=== PATIENT | male | born 1970 | race Caucasian/White ===

== ENCOUNTER 2017-05-22 22:19 | Observation (INO) ==
[2017-05-22 23:21] LABS: Basophils # 0.1 K/mcL (0.0-0.2); Basophils % 0.5 %; Eosinophils # 0.2 K/mcL (0.0-0.6); Eosinophils % 2.2 %; Hematocrit 43.5 % (37.5-50.1); Hemoglobin 15.2 g/dL (12.9-16.9); Immature Granulocytes % 0.9 % (0-4); Lymphocytes % 30.1 %; Mean Corpuscular HGB Conc 34.9 g/dL (31.6-35.5); Mean Corpuscular Hemoglobin 29.1 pg (28.0-33.3); Mean Corpuscular Volume 83.2 fL (83.0-100.0); Mean Platelet Volume 10.4 fL (9.4-12.4); Neutrophils # 5.7 K/mcL (1.6-8.9); Platelet Count 174 K/mcL (140-400); Red Blood Count 5.23 M/mcL (4.19-5.50); Red Cell Distribution Width 12.6 % (11.5-14.5); Segmented Neutrophils % 56.3 %
[2017-05-22 23:34] LABS: BUN/Creatinine Ratio 25 (6-26); Blood Urea Nitrogen 37 mg/dL (8-26); Calcium 9.8 mg/dL (8.6-10.8); Carbon Dioxide 25 mEq/L (19-29); Chloride 103 mEq/L (98-109); Glucose 179 mg/dL (70-99); Osmolality,Calculated 293 (280-300); Potassium 4.7 mEq/L (3.5-4.5); Sodium 135 mEq/L (136-145); eGFR For African Americans > 60 (> 60); eGFR For Non-African Americans 51 (> 60)
[2017-05-22] MEDS ORDERED: 0.9 % Sodium Chloride 1,000 ML IVC ONE (23:49)
[2017-05-23] MEDS ORDERED: Nitroglycerin 1 INCH/GM PACKET TP ONE (00:10)
--- NOTE | 2017-05-23 01:05 | Emergency Department Note ---
Disposition Clinical Impression: Chest pain Qualifiers: Chest pain type: unspecified Qualified Code(s): R07.9 - Chest pain, unspecified Disposition: Admitted As Inpatient Chest Pain HPI - General Chief Complaint: ED Chest Pain Stated Complaint: CP Time Seen by Provider: 05/22/17 22:48 Source: patient Limitations: no limitations Vital Signs Reviewed: Yes Nursing Notes Reviewed: Yes - History of Present Illness HPI Narrative: 46-year-old male with history of hypertension, hyperlipidemia presenting today with chest pain with an onset at 10 AM this morning. Chest pain is nonspecific and pressure-like. He has no recent cardiac catheterization or stress testing. He has had no fever or chills. He has pain or leg tenderness. He has no hemoptysis. He does not follow the floor space allocator but admits to family history of stroke. Severity scale (1-10): 2 - Related Data Home Medications Medication Instructions Recorded Confirmed Atorvastatin [Lipitor] 40 mg PO HS 05/23/17 05/23/17 Cetirizine HCl [All Day Allergy] 10 mg PO DAILY 05/23/17 05/23/17 Colchicine [Colcrys] 0.6 mg PO DAILY PRN 05/23/17 05/23/17 Escitalopram [Lexapro] 10 mg PO DAILY 05/23/17 05/23/17 Fluticasone Propionate Nasal 1 spray NS DAILY PRN 05/23/17 05/23/17 [Flonase] Metoprolol [Lopressor] 37.5 mg PO DAILY 05/23/17 05/23/17 [place]-3/Dha/Epa/Fish Oil [Fish Oil 1,000 mg PO DAILY 05/23/17 05/23/17 1,000 mg Softgel] Omeprazole [PriLOSEC] 40 mg PO DAILY 05/23/17 05/23/17 Tramadol HCl [Ultram] 50 mg PO TID PRN 05/23/17 05/23/17 diazePAM [Valium] 10 mg PO HS 05/23/17 05/23/17 hydroCHLOROthiazide 12.5 mg PO DAILY 05/23/17 05/23/17 [Hydrochlorothiazide] Allergies Allergy/AdvReac Type Severity Reaction Status Date / Time aspirin [ASA] AdvReac Rash Verified 07/01/15 11:38 Cefaclor [From Ceclor] AdvReac Rash Verified 07/01/15 11:38 All systems ED: reviewed and negative except as stated. Chest Pain PMH - Past Medical History Medical history: Reports: GERD, hypertension Psychiatric history: Reports: anxiety - Social History Smoking Status: Never smoker Alcohol use: Reports: occasionally Drug use: Reports: none Physical Exam - General Limitations: no limitations General appearance: alert - Head Head exam: atraumatic - Eye Eye exam: Present: normal appearance - ENT ENT exam: normal exam - Neck Neck exam: Present: normal inspection, full ROM - Chest Chest inspection: Present: normal inspection - Respiratory Respiratory exam: Present: normal lung sounds bilaterally - Cardiovascular Cardiovascular exam: Present: regular rate, normal rhythm - Abdominal Exam Abdominal exam: Present: soft, Non-Tender - Extremities Exam Extremities exam: Present: normal inspection, full ROM - Expanded Lower Extremity Exam Neurovascular/Tendon exam: Present: normal capillary refill. Absent: pulse deficit Gait: observed and normal - Back Exam Back exam: Present: normal inspection, full ROM - Neurological Exam Neurological exam: Present: alert, oriented X3, CN II-XII intact - Psychiatric Psychiatric exam: Present: normal affect, normal mood - Skin Skin exam: Present: warm, dry Course Vital Signs Temperature 98.2 F 05/22/17 22:35 Pulse Rate 101 05/22/17 22:35 Respiratory Rate 16 05/22/17 22:35 Blood Pressure 151/91 05/22/17 22:35 O2 Sat by Pulse Oximetry 94 05/22/17 22:35 Temperature 97.6 F 05/24/17 04:35 Pulse Rate 57 05/24/17 04:35 Respiratory Rate 16 05/24/17 04:35 Blood Pressure 128/82 05/24/17 04:35 O2 Sat by Pulse Oximetry 96 05/24/17 04:35 Oxygen Delivery Oxygen Delivery Room Air Chest Pain - MDM Narrative Medical decision making narrative: 46-year-old male with a history of chest pain who is having typical pain symptoms. Aspirin was given. Nitroglycerin did improve his pain. His EKG shows sinus tachycardia with underlying sinus arrhythmia with normal intervals, poor R-wave progression. Nonspecific abnormal ECG. Heart score is 3. Would plan to admit for further evaluation and possible cardiac consultation. - Lab Data Result diagrams: 05/24/17 02:44 05/24/17 02:44 Lab Results 05/22/17 05/22/17 05/22/17 Range/Units 22:59 22:59 22:59 WBC 10.1 (4.3-11.1) K/mcL RBC 5.23 (4.19-5.50) M/mcL Hgb 15.2 (12.9-16.9) g/dL Hct 43.5 (37.5-50.1) % MCV 83.2 (83.0-100.0) fL MCH 29.1 (28.0-33.3) pg MCHC 34.9 (31.6-35.5) g/dL RDW 12.6 (11.5-14.5) % Plt Count 174 (140-400) K/mcL MPV 10.4 (9.4-12.4) fL Immature Gran % 0.9 (0-4) % Seg Neutrophils % 56.3 % Lymphocytes % 30.1 % Monocytes % 10.0 % Eosinophils % 2.2 % Basophils % 0.5 % Neutrophils # 5.7 (1.6-8.9) K/mcL Lymphocytes # 3.0 (0.6-4.6) K/mcL Monocytes # 1.0 (0.0-1.3) K/mcL Eosinophils # 0.2 (0.0-0.6) K/mcL Basophils # 0.1 (0.0-0.2) K/mcL Sodium 135 L (136-145) mEq/L Potassium 4.7 H (3.5-4.5) mEq/L Chloride 103 (98-109) mEq/L Carbon Dioxide 25 (19-29) mEq/L BUN 37 H (8-26) mg/dL Creatinine 1.49 H (0.72-1.25) mg/dL Est GFR ( Amer) > 60 (> 60) Est GFR (Non-Af Amer) 51 L (> 60) BUN/Creatinine Ratio 25 (6-26) Glucose 179 H (70-99) mg/dL Calculated Osmolality 293 (280-300) Calcium 9.8 (8.6-10.8) mg/dL Troponin I 0.00 (0-0.03) ng/mL Critical Care Time Total Critical Care Time: 35 Attestation: Greater than 35 minutes of critical care time was spent resuscitating this acutely ill male having chest pain requiring nitroglycerin administration. Critical care time was excluding billable procedures.
[2017-05-23] MEDS ORDERED: Naloxone 0.4 MG/ML INJ IVP PRN (02:59)
--- NOTE | 2017-05-23 03:06 | Internal Med History&Physical ---
<Jose Antonio Rosa - Last Filed: 05/23/17 03:27> Date of Encounter: 05/23/17 Time of Encounter: 03:04 Assessment and Plan (1) Chest pain Current visit: Yes Status: Acute atypical chest pain substernal, relieved by nitroglycerin EKG shows sinus tachycardia w/o st-t wave changes trop WNL last exercise stress test in 2005 was WNL heart score 3 ASCVD 10 year: 4.6% Lifetime risk 69% plan: lipid panel, tsh, urine tox, exercise stress test cardiac tele continue home statin allergic to aspirin hold home bb and restart after stress test Qualifiers: Chest pain type: unspecified Qualified Code(s): R07.9 - Chest pain, unspecified (2) Arrhythmia Current visit: Yes Status: Acute patient stated his chest pressure was accompanied by feeling of palpitations, heart skipping beats/racing in setting of dehydration and arnaldo EKG shows sinus tachycardia currently etiology unknown Plan: cardiac tele urine tox exercise stress test Qualifiers: Arrhythmia type: paroxysmal tachycardia, unspecified Qualified Code(s): I47.9 - Paroxysmal tachycardia, unspecified; I47 - Paroxysmal tachycardia (3) ARNALDO (acute kidney injury) Current visit: Yes Status: Acute Base line Scr .8-.9 presented with Scr 1.49 >0.3 increase tachycardic BUN/scr>20 likley pre-renal in setting of new onset arrhythmia and chest pain Plan: IVF- recieved 2L in ER if renal function does not improve may obtain further work up. BMP (4) Hx of essential hypertension Current visit: Yes Status: Acute stable continue home medication (5) Hx of hyperlipidemia Current visit: Yes Status: Acute hx of HLD continue home statin order fasting lipid panel (6) DVT prophylaxis Current visit: Yes Status: Acute heparin SQ Internal Medicine - H&P: HPI Chief complaint: Chest pain Admitted From: Home Plans for Post Hospital Care: Home History of present illness: Mr. Gonzales is a 46 year old male presents with chief complaint of chest pain that started yesterday at 4:00 in the afternoon. Pain was described as substernal, intermittent lasting 20 minutes with no exacerbating or relieving factors. Denied nausea, vomiting, diaphoresis, blurry vision, shortness of breath. Patient reported multiple episodes of palpitations. He denied ever having this before. Denies passing out. Patient received nitroglycerin in the ER which resolved his chest pressure. Past Med Surg Social Fam HX - Past Medical History Medical history: GERD, hyperlipidemia, hypertension Psychiatric history: anxiety, depression - Past Surgical History Surgical History: no surgical history, non-contributory - Social History Smoking Status: Former smoker Smokeless Tobacco Status: No Alcohol use: occasionally Drug use: none - Family History Father History Unknown: Yes Adopted: [place]: Earnest Age: 62 Cause of : colon cancer Hx Family Cardiac Disorders: No Hx Family Respiratory Disorders: No Hx Family Cancer: Yes (Colon cancer) Hx Family GI Disorders: Yes Hx Family Genitourinary Disorders: No Hx Family Endocrine Disorder: No Hx Family Musculoskeletal Disorders: No Hx Family Neuromuscular Disorders: No Hx Family Neurologic Disorders: No Hx Family HEENT Disorders: No Hx Family Autoimmune Disorders: No Hx Family Reproductive Disorders: No Hx Family Psychosocial Disorders: Yes Mother Living Status: Still Living Hx Family Cardiac Disorders: Yes (Hypertension) Internal Medicine - H&P: Meds Allergies aspirin [ASA] Adverse Reaction (Verified 07/01/15 11:38) Rash Cefaclor [From Ceclor] Adverse Reaction (Verified 07/01/15 11:38) Rash All Systems PM: A 10-system review of systems was performed and is negative for pertinent findings except as documented above in the HPI. Review of systems: Constitutional: Denies fever, chills HEENT: Denies headache, vision changes, neck pain, sore throat, rhinorrhea Heart: Reports chest pressure and palpitations Lungs: Denies shortness of breath cough Abdomen: Denies abdominal pain nausea vomiting diarrhea Back: Denies back pain Kidney: Denies dysuria, hematuria Extremities: Denies swelling, pain Neuro: Denies numbness, and tingling - Constitutional Vitals: Temp Pulse Resp BP Pulse Ox 98.2 F 82 14 129/99 96 05/22/17 22:35 05/23/17 00:18 05/23/17 01:31 05/23/17 01:31 05/23/17 00:18 - Other Additional findings: General: Alert and oriented to place time and situation. Without distress HEENT: Head atraumatic, normocephalic, EOMI, PERRLA, neck nontender to palpation , absent Lymphadenopathy, Moist Mucous Membranes, Heart: Regular rate and rhythm with no murmur Lungs: Clear to auscultation bilaterally Abdomen: Soft nontender, nondistended positive bowel sounds Extremities: Absent pedal edema, Neuro: Cranial nerves II through XII intact, sensation equal bilaterally, strength upper and lower extremity 5/5, alert oriented 3 Vascular: Pedal and radial pulses 2 out of 4 Internal Med - H&P Results - Labs CBC & Chem 7: 05/22/17 22:59 05/22/17 22:59 <Jc Leiva - Last Filed: 05/23/17 06:24> Date of Encounter: 05/23/17 Internal Medicine - H&P: HPI History of present illness: Mr. Gonzales is a 46 year old male All Systems PM: A 10-system review of systems was performed and is negative for pertinent findings except as documented above in the HPI. - Constitutional Vitals: Temp Pulse Resp BP Pulse Ox 98.2 F 65 16 108/71 95 05/22/17 22:35 05/23/17 05:08 05/23/17 05:08 05/23/17 05:08 05/23/17 05:08 Internal Med - H&P Results - Labs CBC & Chem 7: 05/22/17 22:59 05/23/17 03:46 Labs: BMP 05/23/17 03:46 Sodium 141 Potassium 3.9 Chloride 105 Carbon Dioxide 26 BUN 20 D Creatinine 0.94 Glucose 92 Calcium 9.3 - Attending Attestation I examined this patient and my medical decision-making was reviewed with the Resident Physician, Dr. Rosa. I agree with the documented findings, disposition and treatment plan as described except to the extent set forth below. I have independently obtained history and examined the patient and my findings are summarized below: Patient presented for evaluation of chest pain and palpitations. Currently the chest pain has resolved after administration of nitroglycerin. On exam he is awake alert oriented 3, heart is regular, lungs are clear. Cardiac troponin is negative EKG was personally reviewed by myself, shows normal sinus rhythm no acute ST or T-wave changes Plan: Transient troponin, rule out ACS. Obtain stress test.
[2017-05-23 05:35] LABS: BUN/Creatinine Ratio 21 (6-26); Calcium 9.3 mg/dL (8.6-10.8); Carbon Dioxide 26 mEq/L (19-29); Chloride 105 mEq/L (98-109); Glucose 92 mg/dL (70-99); Osmolality,Calculated 294 (280-300); Potassium 3.9 mEq/L (3.5-4.5); Sodium 141 mEq/L (136-145); eGFR For African Americans > 60 (> 60); eGFR For Non-African Americans > 60 (> 60)
[2017-05-23 05:36] LABS: Blood Urea Nitrogen 20 mg/dL (8-26)
[2017-05-23 05:37] LABS: Chol/HDL Ratio 3.5 (0-4.9); Magnesium 1.7 mg/dL (1.6-2.6)
[2017-05-23 05:49] LABS: Hemoglobin A1C 5.1 %
[2017-05-23] MEDS: *HR* Heparin 5,000 UNIT/ML VIAL SQ SCH ×2 (06:21→18:30)
[2017-05-23] MEDS: 0.9 % Sodium Chloride 1,000 ML IVC SCH ×2 (06:25→18:36)
[2017-05-23] MEDS: hydroCHLOROthiazide 25 MG TABLET PO SCH (07:19)
--- NOTE | 2017-05-23 09:24 | Internal Med Progress Note ---
<Edgar Soares - Last Filed: 05/23/17 15:12> Date of Encounter: 05/23/17 Time of Encounter: 09:24 - Assessment and plan (1) Chest pain Current Visit: Yes Status: Acute Assessment and plan: Pressure chest pain started on 05/21 that lasts for 20 minutes at a time. Nitro resolved pain in ED. allergic to ASA. EKG - sinus achy. CESIA 2 (>3 CAD risk factors (FMHx CAD, HTN, HLD) 8% risk at 14 days of all cause. ASCVD Risk 10 year: 2.2%. Prevously diagnosed Anxiety, well managed on nightl diazepam. - if O2 <92%, give O2 - Nitro if CP reoccurs - Atorvastatin increased 20 mg to 40 mg. 40 mg is home dose - Beta tere hold for stress test - continue heparin - Stress Test pending - continue tele - started home diazepam Qualifiers: Chest pain type: unspecified Qualified Code(s): R07.9 - Chest pain, unspecified (2) Arrhythmia Current Visit: Yes Status: Acute Assessment and plan: Feelings of palpitations during chest pain has since resolved. continue tele Qualifiers: Arrhythmia type: paroxysmal tachycardia, unspecified Qualified Code(s): I47.9 - Paroxysmal tachycardia, unspecified; I47 - Paroxysmal tachycardia (3) Hx of essential hypertension Current Visit: Yes Status: Acute Assessment and plan: home beta tere held, will restart after stress (4) Hx of hyperlipidemia Current Visit: Yes Status: Acute Assessment and plan: restarted home Atorvastatin 40 mg (5) ARNALDO (acute kidney injury) Current Visit: Yes Status: Acute Assessment and plan: Upon admission Cr. 1.49, baseline for patient is 0.8-0.9. Today Cr. 0.94. Will continue to monitor Cr (6) DVT prophylaxis Current Visit: Yes Status: Acute Assessment and plan: ct heparin - Subjective Interval history: Mr Gonzales is a 46 year old male on day 1 of admission due to chest pain that started at 4pm yesterday afternoon. Pain is described as "weight on his chest" and located post-sternally. Pain waxed and waned until he got home which he tried to resolve by drinking a couple of beers and taking a valium. He also noticed that his heart and pulse were "fluttering". he reports that his symptoms have since resolved after receiving nitro paste. patient denies current nausea, vomiting, sweating, blurry vision, SOB, anxiety. Patient does have a history of anxiety that is controlled with a nightly Valium. - Constitutional Vitals: Temp Pulse Resp BP Pulse Ox 97.5 F L 63 16 125/84 97 05/23/17 07:13 05/23/17 07:13 05/23/17 07:13 05/23/17 07:13 05/23/17 07:13 General appearance: Present: cooperative, A&O X 3 - Head Head exam: Present: atraumatic, normocephalic - Respiratory Respiratory exam: Present: CTAB. Absent: accessory muscle use, rales, rhonchi, wheezes - Cardiovascular Cardiovascular exam: Present: RRR, +S1, +S2. Absent: diastolic murmur, gallop, rubs, systolic murmur - GI/Abdominal GI/Abdominal exam: Present: normal bowel sounds, soft, no peritoneal signs. Absent: distended, tenderness - Neurological Exam Neurological exam: Present: alert, oriented X3 - Psychiatric Psychiatric exam: Present: normal affect, normal mood Internal Medicine: Result - Labs CBC & Chem 7: 05/22/17 22:59 05/23/17 03:46 Labs: BMP 05/23/17 03:46 Sodium 141 Potassium 3.9 Chloride 105 Carbon Dioxide 26 BUN 20 D Creatinine 0.94 Glucose 92 Calcium 9.3 Consult Discharge Plan - Plan Referrals: Av Mariee MD [Primary Care Provider] - 05/29/17 1:00 pm (appointment will be [facility]) <Pardeep Mueller - Last Filed: 05/23/17 16:53> Date of Encounter: 05/23/17 - Constitutional Vitals: Temp Pulse Resp BP Pulse Ox 97.6 F 91 20 151/90 97 05/23/17 15:59 05/23/17 15:59 05/23/17 15:59 05/23/17 15:59 05/23/17 15:59 Internal Medicine: Result - Labs CBC & Chem 7: 05/22/17 22:59 05/23/17 03:46 Labs: BMP 05/23/17 03:46 Sodium 141 Potassium 3.9 Chloride 105 Carbon Dioxide 26 BUN 20 D Creatinine 0.94 Glucose 92 Calcium 9.3 - Attending Attestation I examined this patient and my medical decision-making was reviewed with the Resident Physician on 05/23/17. I agree with the documented findings, disposition and treatment plan as described except to the extent set forth below. Patient is seen and evaluated at bedside He is admitted to observation and being managed for acute onset sinus arrhythmia , chest pain and ARNALDO He has not had chest pain or palpitations since arrival and is chest pain free His EKG was sinus and non-ischemic, troponin negative Denies toxic habts Exam: VSS Chest is clear, chest pain not reproducible Heart: S1, S2 only, no m/g/r Abdomen is benign No pedal edema A/P Follow stress/echo report Keep on telemetry Obtain urine toxicology Continue current care Rest of details as in resident physicians documentation
[2017-05-23] MEDS ORDERED: Perflutren Lipid Microsphere 1.3 ML in 0.9 % Sodium Chloride 8.7 ML IVP ONE (12:58)
--- NOTE | 2017-05-23 14:44 | Exercise Stress Test ---
Exercise Stress Name: John Gonzales Date of Study: 05/23/2017 Date: 1970 Ht: 70.0in Medical Record#: [id number] Age: 46 Wt: 262.0lb Gender: Male BSA: 2.34 Order #: [id number] Location: [facility] Room #: 2A34 Reading Physician: London Persaud MD, [facility] Technologist: Tasia Dasilva, [employer]IED COMM[employer]ICATION[employer] ENGINEER,CPFT Supervising Provider: García Alcantara CNP Primary Physician: Av Mariee MD Ordering Physician: Jose Antonio Rosa DO Indication: Chest Pain Impressions: The exercise capacity was average. Baseline elevated blood pressure (146/90). Peak BP with exercise was 204/110. Stress ECG was borderline for ischemia in the inferolateral leads. Recommend repeating a stress test with an imaging modality (such as echocardiography or nuclear perfusion imaging) to further evaluate. Findings: Normal sinus rhythm No baseline arrhythmias were noted. The exercise capacity was average. Baseline elevated blood pressure (146/90). Peak BP with exercise was 204/110. No chest pain during exercise. Rare PACs during exercise and recovery. 1 PVC also noted. Stress ECG was borderline for ischemia in the inferolateral leads. Recommend repeating a stress test with an imaging modality (such as echocardiography or nuclear perfusion imaging) to further evaluate. History: Hypertension Hypercholesteremia Stress Test Summary: Stress Test Type: Treadmill Protocol: Tony Baseline Information: Maximum Predicted HR: 173 85% MPHR: 147 Blood Pressure: 146 / 90 Stress Information: Total Exercise Time: 8:00 minutes Test Terminated Due To: Dyspnea Maximum Blood Pressure: 204 / 110 Maximum Heart Rate: 165 Percent Maximum Heart Rate Achieved: 95 Double Product: [id number] METS Reached: 10.1 Symptoms: Shortness of breath, Leg discomfort Updated by London Persaud MD, [facility] on 05/23/2017 2:36:56 PM electronically signed on 05/23/2017 2:37:36 PM with status of Final
--- NOTE | 2017-05-23 15:37 | Electrocardiograph Report ---
[address] [address] Test Date: 2017-05-22 Pat Name: John Gonzales Department: 105 Room: 2A Gender: M [employer] Supervisor: [facility] : 1970 Requested By: Willian Hernandez Order Number: [id number] Reading MD: Abner Hernandez Measurements Intervals [place] Rate: 101 P: 45 DC: 157 QRS: 21 QRSD: 99 T: 32 QT: 328 QTc: 386 Interpretive Statements SINUS TACHYCARDIA ABNORMAL RHYTHM ECG Electronically Signed On 05-23-2017 15:35:17 EDT by Abner Hernandez
[2017-05-23] MEDS: traMADol 50 MG TABLET PO PRN (20:09)
[2017-05-23] MEDS: diazePAM 10 MG TABLET PO PRN (20:10)
[2017-05-24 04:33] LABS: Hematocrit 40.1 % (37.5-50.1); Mean Corpuscular HGB Conc 32.9 g/dL (31.6-35.5); Mean Corpuscular Hemoglobin 28.1 pg (28.0-33.3); Mean Corpuscular Volume 85.3 fL (83.0-100.0); Mean Platelet Volume 10.9 fL (9.4-12.4); Platelet Count 150 K/mcL (140-400); Red Cell Distribution Width 12.6 % (11.5-14.5)
[2017-05-24 04:36] LABS: Hemoglobin 13.2 g/dL (12.9-16.9)
[2017-05-24] MEDS: 0.9 % Sodium Chloride 1,000 ML IVC SCH ×2 (04:44→15:11)
[2017-05-24 04:53] LABS: BUN/Creatinine Ratio 15 (6-26); Blood Urea Nitrogen 13 mg/dL (8-26); Carbon Dioxide 26 mEq/L (19-29); Chloride 106 mEq/L (98-109); Glucose 98 mg/dL (70-99); Osmolality,Calculated 294 (280-300); Potassium 3.6 mEq/L (3.5-4.5); Sodium 142 mEq/L (136-145); eGFR For African Americans > 60 (> 60); eGFR For Non-African Americans > 60 (> 60)
[2017-05-24] MEDS: *HR* Heparin 5,000 UNIT/ML VIAL SQ SCH ×2 (05:28→15:15)
[2017-05-24] MEDS: hydroCHLOROthiazide 25 MG TABLET PO SCH (12:50)
--- NOTE | 2017-05-24 12:51 | Internal Med Progress Note ---
<Edgar Soares - Last Filed: 05/24/17 12:45> Date of Encounter: 05/24/17 Time of Encounter: 12:45 - Assessment and plan (1) Chest pain Current Visit: Yes Status: Acute Assessment and plan: Pressure chest pain started on 05/21 that lasts for 20 minutes at a time. Nitro resolved pain in ED. allergic to ASA. EKG - sinus achy. CESIA 2 (>3 CAD risk factors (FMHx CAD, HTN, HLD) 8% risk at 14 days of all cause. ASCVD Risk 10 year: 2.2%. Prevously diagnosed Anxiety, well managed on nightl diazepam. - if O2 <92%, give O2 - Nitro if CP reoccurs - Atorvastatin increased 20 mg to 40 mg. 40 mg is home dose - Beta tere hold for stress test - continue heparin - Stress Test tomorrow - continue tele - started home diazepam Qualifiers: Chest pain type: unspecified Qualified Code(s): R07.9 - Chest pain, unspecified (2) Arrhythmia Current Visit: Yes Status: Acute Assessment and plan: Feelings of palpitations during chest pain has since resolved. continue tele Qualifiers: Arrhythmia type: paroxysmal tachycardia, unspecified Qualified Code(s): I47.9 - Paroxysmal tachycardia, unspecified; I47 - Paroxysmal tachycardia (3) Hx of essential hypertension Current Visit: Yes Status: Acute Assessment and plan: home beta tere held, will restart after stress (4) Hx of hyperlipidemia Current Visit: Yes Status: Acute Assessment and plan: restarted home Atorvastatin 40 mg (5) ARNALDO (acute kidney injury) Current Visit: Yes Status: Acute Assessment and plan: Upon admission Cr. 1.49, baseline for patient is 0.8-0.9. Today Cr. 0.86. Will continue to monitor Cr (6) DVT prophylaxis Current Visit: Yes Status: Acute Assessment and plan: ct heparin - Subjective Interval history: Mr Gonzales is a 46 year old male on day 2 of admission due to chest pain that started at 4pm yesterday afternoon. Pain is described as "weight on his chest" and located post-sternally. Pain waxed and waned until he got home which he tried to resolve by drinking a couple of beers and taking a valium. He also noticed that his heart and pulse were "fluttering". he reports that his symptoms have since resolved after receiving nitro paste. patient denies current nausea, vomiting, sweating, blurry vision, SOB, anxiety. Patient does have a history of anxiety that is controlled with a nightly Valium. Patient does not have chest pain complaints today. continues to deny nausea, vomiting, sweating, blurry vision - Constitutional Vitals: Temp Pulse Resp BP Pulse Ox 98.5 F 76 17 164/104 98 05/24/17 12:17 05/24/17 12:17 05/24/17 12:17 05/24/17 12:17 05/24/17 12:17 General appearance: Present: cooperative, A&O X 3 - Head Head exam: Present: atraumatic, normocephalic - Respiratory Respiratory exam: Present: CTAB. Absent: accessory muscle use, rales, rhonchi, wheezes - Cardiovascular Cardiovascular exam: Present: RRR, +S1, +S2. Absent: diastolic murmur, gallop, rubs, systolic murmur - GI/Abdominal GI/Abdominal exam: Present: normal bowel sounds, soft, no peritoneal signs. Absent: distended, tenderness - Neurological Exam Neurological exam: Present: alert, oriented X3 Internal Medicine: Result - Labs CBC & Chem 7: 05/24/17 02:44 05/24/17 02:44 Labs: Short CBC 05/24/17 Range/Units 02:44 WBC 7.3 (4.3-11.1) K/mcL Hgb 13.2 D (12.9-16.9) g/dL Hct 40.1 (37.5-50.1) % Plt Count 150 (140-400) K/mcL BMP 05/24/17 02:44 Sodium 142 Potassium 3.6 Chloride 106 Carbon Dioxide 26 BUN 13 Creatinine 0.86 Glucose 98 Calcium 9.0 Consult Discharge Plan - Plan Referrals: Av Mariee MD [Primary Care Provider] - 05/29/17 1:00 pm (appointment will be [facility]ui) <Pardeep Mueller - Last Filed: 05/24/17 15:51> Date of Encounter: 05/24/17 - Constitutional Vitals: Temp Pulse Resp BP Pulse Ox 98.5 F 76 17 164/104 98 05/24/17 12:17 05/24/17 12:17 05/24/17 12:17 05/24/17 12:17 05/24/17 12:17 Internal Medicine: Result - Labs CBC & Chem 7: 05/24/17 02:44 05/24/17 02:44 Labs: Short CBC 05/24/17 Range/Units 02:44 WBC 7.3 (4.3-11.1) K/mcL Hgb 13.2 D (12.9-16.9) g/dL Hct 40.1 (37.5-50.1) % Plt Count 150 (140-400) K/mcL BMP 05/24/17 02:44 Sodium 142 Potassium 3.6 Chloride 106 Carbon Dioxide 26 BUN 13 Creatinine 0.86 Glucose 98 Calcium 9.0 Cardiac Enzymes 05/24/17 Range/Units 13:33 Troponin I 0.00 (0-0.03) ng/mL - Attending Attestation I examined this patient and my medical decision-making was reviewed with the Resident Physician on 05/24/17. I agree with the documented findings, disposition and treatment plan as described except to the extent set forth below. Patient is seen and evaluated at bedside with spouse He is admitted to observation and being managed for acute onset sinus arrhythmia , chest pain and ARNALDO He has not had chest pain or palpitations since arrival and is chest pain free His EKG was sinus and non-ischemic, troponin negativeX2 Stress test done 05/23 was indeterminate and recomendation by the stallion manager was to repeat with imaging modality-NPI/ECHO, scheduled yesterday afternnon but due to some miscommunication was not done today Patient is otherwise stable Exam: VSS Chest is clear, chest pain not reproducible Heart: S1, S2 only, no m/g/r Abdomen is benign No pedal edema A/P NPI a.m Continue current care Rest of details as in resident physicians documentation
[2017-05-24] MEDS: traMADol 50 MG TABLET PO PRN (22:20)
[2017-05-24] MEDS: diazePAM 10 MG TABLET PO PRN (22:20)
[2017-05-25] MEDS: 0.9 % Sodium Chloride 1,000 ML IVC SCH (01:17)
[2017-05-25] MEDS: *HR* Heparin 5,000 UNIT/ML VIAL SQ SCH ×2 (05:43→16:47)
[2017-05-25 06:32] LABS: Hemoglobin 13.3 g/dL (12.9-16.9); Mean Corpuscular HGB Conc 34.1 g/dL (31.6-35.5); Mean Corpuscular Hemoglobin 28.9 pg (28.0-33.3); Mean Corpuscular Volume 84.6 fL (83.0-100.0); Mean Platelet Volume 10.4 fL (9.4-12.4); Platelet Count 142 K/mcL (140-400); Red Blood Count 4.61 M/mcL (4.19-5.50); Red Cell Distribution Width 12.4 % (11.5-14.5)
[2017-05-25 06:44] LABS: BUN/Creatinine Ratio 12 (6-26); Blood Urea Nitrogen 10 mg/dL (8-26); Calcium 8.9 mg/dL (8.6-10.8); Carbon Dioxide 28 mEq/L (19-29); Chloride 106 mEq/L (98-109); Glucose 103 mg/dL (70-99); Osmolality,Calculated 289 (280-300); Potassium 3.4 mEq/L (3.5-4.5); Sodium 140 mEq/L (136-145); eGFR For African Americans > 60 (> 60); eGFR For Non-African Americans > 60 (> 60)
[2017-05-25] MEDS ORDERED: Regadenoson 0.4 MG/5 ML SYRINGE IVP ONE (07:14)
--- NOTE | 2017-05-25 07:56 | Internal Med Progress Note ---
<Edgar Soares - Last Filed: 05/25/17 11:14> Date of Encounter: 05/25/17 Time of Encounter: 07:51 - Assessment and plan (1) Chest pain Current Visit: Yes Status: Acute Assessment and plan: Pressure chest pain started on 05/21 that lasts for 20 minutes at a time. Nitro resolved pain in ED. allergic to ASA. EKG - sinus achy. CESIA 2 (>3 CAD risk factors (FMHx CAD, HTN, HLD) 8% risk at 14 days of all cause. ASCVD Risk 10 year: 2.2%. Prevously diagnosed Anxiety, well managed on nightl diazepam. - if O2 <92%, give O2 - Nitro if CP reoccurs - Atorvastatin increased 20 mg to 40 mg. 40 mg is home dose - Beta tere hold for stress test - continue heparin - Stress Test report - pending, if normal consider discharge - continue tele - started home diazepam Qualifiers: Chest pain type: unspecified Qualified Code(s): R07.9 - Chest pain, unspecified (2) Arrhythmia Current Visit: Yes Status: Acute Assessment and plan: Feelings of palpitations during chest pain has since resolved. continue tele Qualifiers: Arrhythmia type: paroxysmal tachycardia, unspecified Qualified Code(s): I47.9 - Paroxysmal tachycardia, unspecified; I47 - Paroxysmal tachycardia (3) Hx of essential hypertension Current Visit: Yes Status: Acute Assessment and plan: home beta tere held, will restart after stress (4) Hx of hyperlipidemia Current Visit: Yes Status: Acute Assessment and plan: restarted home Atorvastatin 40 mg (5) ARNALDO (acute kidney injury) Current Visit: Yes Status: Acute Assessment and plan: Upon admission Cr. 1.49, baseline for patient is 0.8-0.9. Today Cr. 0.86. most likely resolved Will continue to monitor Cr (6) DVT prophylaxis Current Visit: Yes Status: Acute Assessment and plan: ct heparin - Subjective Interval history: Mr Gonzales is a 46 year old male on day 2 of admission due to chest pain that started at 4pm yesterday afternoon. Pain is described as "weight on his chest" and located post-sternally. Pain waxed and waned until he got home which he tried to resolve by drinking a couple of beers and taking a valium. He also noticed that his heart and pulse were "fluttering". he reports that his symptoms have since resolved after receiving nitro paste. patient denies current nausea, vomiting, sweating, blurry vision, SOB, anxiety. Patient does have a history of anxiety that is controlled with a nightly Valium. Patient does not have chest pain complaints today. denies nausea, vomiting, sweating, or blurry vision overnight. - Constitutional Vitals: Temp Pulse Resp BP Pulse Ox 97.7 F 66 15 130/85 96 05/25/17 03:24 05/25/17 03:24 05/25/17 03:24 05/25/17 03:24 05/25/17 03:24 General appearance: Present: cooperative, A&O X 3 - Respiratory Respiratory exam: Present: CTAB. Absent: accessory muscle use, rales, rhonchi, wheezes - Cardiovascular Cardiovascular exam: Present: RRR, +S1, +S2. Absent: diastolic murmur, gallop, rubs, systolic murmur - GI/Abdominal GI/Abdominal exam: Present: normal bowel sounds, soft, no peritoneal signs. Absent: distended, tenderness Internal Medicine: Result - Labs CBC & Chem 7: 05/25/17 05:50 05/25/17 05:50 Labs: Short CBC 05/25/17 Range/Units 05:50 WBC 7.4 (4.3-11.1) K/mcL Hgb 13.3 (12.9-16.9) g/dL Hct 39.0 (37.5-50.1) % Plt Count 142 (140-400) K/mcL BMP 05/25/17 05:50 Sodium 140 Potassium 3.4 L Chloride 106 Carbon Dioxide 28 BUN 10 Creatinine 0.86 Glucose 103 H Calcium 8.9 Cardiac Enzymes 05/24/17 Range/Units 13:33 Troponin I 0.00 (0-0.03) ng/mL Consult Discharge Plan - Plan Referrals: Av Mariee MD [Primary Care Provider] - 05/29/17 1:00 pm (appointment will be [facility]) <Pardeep Mueller - Last Filed: 05/25/17 13:38> Date of Encounter: 05/25/17 - Constitutional Vitals: Temp Pulse Resp BP Pulse Ox 98.0 F 77 18 166/99 96 05/25/17 11:29 05/25/17 11:29 05/25/17 11:29 05/25/17 11:29 05/25/17 11:29 Internal Medicine: Result - Labs CBC & Chem 7: 05/25/17 05:50 05/25/17 05:50 Labs: Short CBC 05/25/17 Range/Units 05:50 WBC 7.4 (4.3-11.1) K/mcL Hgb 13.3 (12.9-16.9) g/dL Hct 39.0 (37.5-50.1) % Plt Count 142 (140-400) K/mcL BMP 05/25/17 05:50 Sodium 140 Potassium 3.4 L Chloride 106 Carbon Dioxide 28 BUN 10 Creatinine 0.86 Glucose 103 H Calcium 8.9 Cardiac Enzymes 05/24/17 Range/Units 13:33 Troponin I 0.00 (0-0.03) ng/mL - Attending Attestation I examined this patient and my medical decision-making was reviewed with the Resident Physician on 05/25/17. I agree with the documented findings, disposition and treatment plan as described except to the extent set forth below. Patient is seen and evaluated at bedside with spouse Exam: VSS Chest is clear, chest pain not reproducible Heart: S1, S2 only, no m/g/r Abdomen is benign No pedal edema A/P Follow stress test For discharge if negative Rest of details as in resident physicians documentation
[2017-05-25] MEDS: hydroCHLOROthiazide 25 MG TABLET PO SCH (12:00)
[2017-05-25 17:11] VITALS: BP 150/104
--- NOTE | 2017-05-25 20:08 | Discharge Summary ---
Date of Encounter: 05/25/17 Time of Encounter: 18:55 - Discharge Diagnosis (1) Chest pain Priority: Primary Status: Acute Qualifiers: Chest pain type: unspecified Qualified Code(s): R07.9 - Chest pain, unspecified (2) Hx of essential hypertension Priority: Secondary Status: Chronic (3) Hx of hyperlipidemia Priority: Secondary Status: Chronic (4) ARNALDO (acute kidney injury) Priority: Primary Status: Resolved - Discharge Medications Home Medications: Atorvastatin [Lipitor] 40 mg PO HS 05/23/17 [History] Cetirizine HCl [All Day Allergy] 10 mg PO DAILY 05/23/17 [History] Colchicine [Colcrys] 0.6 mg PO DAILY PRN 05/23/17 [History] Escitalopram [Lexapro] 10 mg PO DAILY 05/23/17 [History] Fluticasone Propionate Nasal [Flonase] 1 spray NS DAILY PRN 05/23/17 [History] Metoprolol [Lopressor] 37.5 mg PO DAILY 05/23/17 [History] Clayton-3/Dha/Epa/Fish Oil [Fish Oil 1,000 mg Softgel] 1,000 mg PO DAILY 05/23/17 [History] Omeprazole [PriLOSEC] 40 mg PO DAILY 05/23/17 [History] Tramadol HCl [Ultram] 50 mg PO TID PRN 05/23/17 [History] diazePAM [Valium] 10 mg PO HS 05/23/17 [History] hydroCHLOROthiazide [Hydrochlorothiazide] 12.5 mg PO DAILY 05/23/17 [History] Allergies/Adverse Reactions: Allergies aspirin [ASA] Adverse Reaction (Verified 07/01/15 11:38) Rash Cefaclor [From Ceclor] Adverse Reaction (Verified 07/01/15 11:38) Rash Procedures/tests Complete & Pending: Procedures Performed prior 72 hours Category Date Time Status NM chase perf SPECT multi [NM] Routine Exams 05/24/17 12:43 Taken EV echocardiogram w enhance Routine Y 05/23/17 06:01 Completed SP exercise stress ECG Routine Y 05/23/17 07:16 Completed SP pharm nuclear stress Routine Y 05/25/17 Completed Date of admission: 05/23/17 01:24 Primary care physician: Av Mariee MD Discharging clinician: Pardeep Mueller Anticipated date of discharge: 05/25/17 - Patient Status Disposition: Home, Self-Care Condition: Good Functional capacity at discharge: independent ambulation Overall status at discharge: patient is back to baseline - Discharge Instructions Instructions: Chest Pain (DC) Follow Up With: Av Mariee MD [Primary Care Provider] - 05/29/17 1:00 pm (appointment will be [facility]) - Diet and Activity Activity: resume usual activities as tolerated Diet: advance to your usual diet Interval History: See below Hospital course: Mr. Gonzales is a 46 year old male He was admitted to observation for evaluation for chest pain He was also found to have ARNALDO on work up HIs stress test was indeterminate but a repeat nuclear study per Dr. Soler did not show ischemia or infarct. His EF is >70% He has been asymptomatic on arrival He is clinically stable for discharge Rest of details as in same day's progress notes Follow up with PCP - Time Spent with Patient Total time spent providing and/or coordinating discharge services: Less than 30 minutes - Constitutional Vitals: Temp Pulse Resp BP Pulse Ox 98.2 F 73 20 150/104 97 05/25/17 17:07 05/25/17 17:07 05/25/17 17:07 05/25/17 17:07 05/25/17 17:07 General appearance: Present: cooperative, A&O X 3 - Head Head exam: Present: atraumatic, normocephalic - Eye Eye exam: Present: PERRL, conjuntiva pink, sclera anicteric Pupils: Present: PERRL - Neck Neck exam general surgery: Present: supple, trachea midline. Absent: lymphadenopathy - Respiratory Respiratory exam: Present: CTAB. Absent: accessory muscle use, rales, rhonchi, wheezes - Cardiovascular Cardiovascular exam: Present: RRR, +S1, +S2. Absent: diastolic murmur, gallop, rubs, systolic murmur - GI/Abdominal GI/Abdominal exam: Present: normal bowel sounds, soft, no peritoneal signs. Absent: distended, tenderness - Extremities Exam Extremities exam: Present: warm, radial pulses palpable and symmetrical. Absent : calf tenderness, cyanotic, pedal edema - Neurological Exam Neurological exam: Present: alert, CN II-XII intact, oriented X3, no focal deficits. Absent: pronater drift, facial droop, speech deficit - Skin Skin exam: Present: dry, intact
== END 2017-05-25 20:30 | disposition home or self-care (01) ==
LOC: 2ANU 22:19 → EMEROO 22:19 → 2ANU 05-23 02:04
PROVIDERS: ADMIT Internal Medicine; ATTEND Internal Medicine